=== PATIENT | female | born 1990 | race Caucasian/White ===

== ENCOUNTER 2016-10-05 06:09 | Inpatient (IN) | payer OTHER ==
[2016-10-05] MEDS ORDERED: LACTATED RINGERS 1,000 ML IV ONE (06:16)
[2016-10-05] MEDS ORDERED: CITRIC ACID-SODIUM CITRATE 15 ML CUP PO ONE (06:16)
[2016-10-05] MEDS ORDERED: ceFAZolin 2 GM in SODIUM CHLORIDE 0.9% 100 ML IVPB ONE (06:16)
[2016-10-05 06:22] VITALS: BMI 29.0
[2016-10-05 06:24] LABS: Glucose,Whole Blood 76 mg/dL (75-99)
[2016-10-05] MEDS ORDERED: LACTATED RINGERS 1,000 ML IV SCH (06:30)
[2016-10-05 06:32] LABS: Basophils % (A) 0 %; CH 30.1; CHCM 34.6; Eosinophils # (A) 0.1 k/uL (0-0.7); Eosinophils % (A) 1 %; HCT 37.3 % (34.0-46.0); HDW 3.36; HGB 12.4 gm/dL (11.4-16.0); Luc # (Auto) 0.29; Luc % (Auto) 2; Lymphocytes # (A) 3.7 k/uL (1.0-4.8); Lymphocytes % (A) 27 %; MCH 29.1 pg (25.0-35.0); MCHC 33.3 g/dL (31.0-37.0); MCV 87.5 fL (80.0-100.0); Mean Platelet Volume 7.4; Monocytes # (A) 0.7 k/uL (0-1.0); Monocytes % (A) 5 %; Neutrophils # (A) 9.1 k/uL (1.3-7.7); Neutrophils % (A) 65 %; RBC 4.26 m/uL (3.80-5.40); RDW 12.6 % (11.5-15.5); WBC 13.9 k/uL (3.8-10.6); WBC (Perox) 14.51
[2016-10-05] MEDS ORDERED: NALBUPHINE 10 MG/ML AMPUL ONE (07:51)
[2016-10-05] MEDS ORDERED: KETOROLAC 30 MG/ML 1 ML VIAL ONE (07:51)
[2016-10-05] MEDS ORDERED: OXYTOCIN 10 UNIT/ML 1 ML VIAL IM ONE (07:51)
[2016-10-05] MEDS ORDERED: ONDANSETRON 4 MG/2 ML VIAL ONE (07:51)
[2016-10-05] MEDS ORDERED: MORPHINE SULFATE (PF) 0.3 MG/0.3 ML SYR ONE (07:51)
[2016-10-05] MEDS ORDERED: ACETAMINOPHEN IV (For NPO) 1,000 MG/100 ML VIAL ONE (07:51)
[2016-10-05] MEDS ORDERED: diphenhydrAMINE 25 MG CAP PO PRN (08:29)
[2016-10-05] MEDS ORDERED: METOCLOPRAMIDE 5 MG/ML 2 ML VIAL IVP PRN (08:29)
[2016-10-05] MEDS ORDERED: diphenhydrAMINE 50 MG/ML 1 ML VIAL IVP PRN ×2 (08:29)
[2016-10-05] MEDS ORDERED: diphenhydrAMINE 50 MG CAP PO PRN (08:29)
[2016-10-05] MEDS ORDERED: Acetaminophen-Codeine 300-30mg TAB PO PRN (08:29)
[2016-10-05] MEDS ORDERED: ACETAMINOPHEN TAB 325 MG TAB PO PRN (08:29)
[2016-10-05] MEDS ORDERED: ZOLPIDEM 5 MG TAB PO PRN (08:29)
[2016-10-05] MEDS ORDERED: OXYTOCIN 30 UNITS/500 ML NS 30 UNIT in SALINE 1 500ML.BAG IV SCH (08:30)
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
--- NOTE | 2016-10-05 08:34 | P.OP ---
Date of Procedure: 10/05/16 Preoperative Diagnosis: Intrauterine at term: Prior section Postoperative Diagnosis: Same Procedure(s) Performed: Repeat low transverse section from Pfannenstiel Anesthesia: spinal Surgeon: Melquiades Polanco [employer] Project Manager #1: Raya Conner Estimated Blood Loss (ml): 500 Pathology: other (Placenta) Condition: stable Disposition: floor Operative Findings: Male scores of 8 and 9 at one and 5 minutes respectively and the weight was 7 lbs. 4 oz. Description of Procedure: Patient was taken to the operating suite where a spinal anesthetic was found to be adequate. She was prepped and draped in the normal sterile fashion and placed in dorsal supine position with leftward tilt. Initially a Pfannenstiel skin incision was made. This incision was then carried through to underlying layer of the fascia with a second knife. Fascia was then nicked in the midline and this opening was extended laterally with Fuchs scissors. This both the superior and inferior aspect of this incision were then grasped tented up and bluntly and sharply dissected off the rectus muscles. Rectus muscles were then divided midline elevated with hemostats and entered sharply with Metzenbaum scissors. This opening was then extended superiorly and inferiorly with good visualization of both bowel bladder. Bladder blade was then placed bladder flap was identified and entered with Metzenbaum scissors and this opening was extended across face of the uterus with Metzenbaum scissors. Bladder flap was then digitally created and knife was used to incise the uterus once a small hole was created was extended bluntly and clear fluid was noted. Head was then H medically delivered and the mouth nares were bulb suctioned. Anterior and posterior shoulder was then delivered with gentle downward upper traction followed by the remainder the baby. Umbilical cord was then clamped cut usual fashion an nursery personnel was present to assume care. Placenta was then delivered intact and Pitocin was added to the IV. Uterus was then exteriorized cleared of clots and debris and closed in 1 layer with 0 Vicryl suture. Once excellent hemostasis was obtained 3-0 Vicryl was used to reapproximate the bladder flap. Blood and debris was then suctioned from the posterior cul-de- sac and the uterus was reinserted into the abdomen. Peritoneal layer was then closed [place] suture fascial layer was closed with 0 Vicryl suture one layer of 3 -0 Vicryl was placed in the deep subcuticular tissues and then the skin was closed with 3-0 Vicryl on a Gildardo needle. Sponge, lap, needle counts were all correct 2 and patient was taken to the recovery room in stable and satisfactory condition.
[2016-10-05] MEDS: LACTATED RINGERS 1,000 ML IV SCH ×2 (10:26→21:01)
[2016-10-05] MEDS ORDERED: DIPH,PERTUS(ACELL)TETVAC-LF 0.5 ML VIAL IM ONE (10:28)
[2016-10-05] MEDS: KETOROLAC 30 MG/ML 1 ML VIAL IVP PRN ×2 (14:04→20:12)
[2016-10-05] MEDS: SENNOSIDES-DOCUSATE SODIUM 1 EACH TAB PO SCH (20:13)
[2016-10-06] MEDS: LACTATED RINGERS 1,000 ML IV SCH (02:10)
[2016-10-06] MEDS: KETOROLAC 30 MG/ML 1 ML VIAL IVP PRN (02:56)
--- NOTE | 2016-10-06 07:59 | P.PN ---
Progress Note - Text 0739 Anesthesia POD 1. Patient is status post Jhony section under of anesthesia with intra-thecal preservative free morphine 300 g. Moderate pruritus now resolving, good post-op analgesia, and no headache or other complication.
--- NOTE | 2016-10-06 08:15 | P.PNOBGPC ---
Subjective - Subjective Principal diagnosis: Postop day 1 Interval history: Overall is doing very well postop day 1. She is ambulating, voiding and she is tolerating her diet. She voices no complaints this morning. All questions are answered for her at this time. Her vital signs are stable and afebrile. Objective - Vital Signs Latest vital signs: Vital Signs Temp Pulse Resp BP Pulse Ox 10/06/16 04:00 97.5 F L 74 14 134/80 97 10/06/16 00:00 98 F 76 14 149/84 98 10/05/16 20:00 98.8 F 88 16 132/76 10/05/16 17:33 98.1 F 84 18 116/69 96 10/05/16 12:00 97.9 F 68 16 112/70 98 10/05/16 10:34 97.4 F L 62 16 114/72 98 10/05/16 10:04 63 16 117/71 97 10/05/16 09:34 62 16 114/64 99 10/05/16 09:19 75 16 134/64 97 10/05/16 09:04 80 16 131/63 98 10/05/16 08:49 83 16 134/84 97 10/05/16 08:34 96.9 F L 81 16 111/70 99 Intake and Output 10/05/16 10/06/16 10/06/16 22:59 06:59 14:59 Intake Total 997 100 Output Total 600 1500 Balance 397 -1400 Intake: Oral 997 100 Output: Urine 600 1500 3-way Urethral 300 Straight 500 Other: # Voids 1 - Exam Lungs: bilateral: normal Chest: Normal S1, Normal S2 Extremities: Present: normal Abdomen: Present: normal appearance, soft. Absent: distention, tenderness Incision: Present: normal, dry, intact Uterus: Present: normal, firm
[2016-10-06] MEDS: SENNOSIDES-DOCUSATE SODIUM 1 EACH TAB PO SCH ×2 (08:32→20:03)
[2016-10-06] MEDS: Acetaminophen-Codeine 300-30mg TAB PO PRN ×3 (08:32→21:19)
[2016-10-06 09:29] LABS: Basophils # (A) 0.1 k/uL (0-0.2); Basophils % (A) 0 %; CH 29.9; CHCM 34.5; Eosinophils # (A) 0.1 k/uL (0-0.7); Eosinophils % (A) 1 %; HCT 29.3 % (34.0-46.0); HDW 3.35; Luc # (Auto) 0.16; Luc % (Auto) 2; Lymphocytes # (A) 2.8 k/uL (1.0-4.8); Lymphocytes % (A) 25 %; MCH 29.5 pg (25.0-35.0); MCHC 33.7 g/dL (31.0-37.0); MCV 87.3 fL (80.0-100.0); Mean Platelet Volume 8.1; Monocytes # (A) 0.7 k/uL (0-1.0); Monocytes % (A) 7 %; Neutrophils # (A) 7.1 k/uL (1.3-7.7); Neutrophils % (A) 65 %; RBC 3.35 m/uL (3.80-5.40); RDW 12.7 % (11.5-15.5); WBC 10.9 k/uL (3.8-10.6); WBC (Perox) 11.15
[2016-10-06 09:31] LABS: HGB 9.9 gm/dL (11.4-16.0)
[2016-10-06] MEDS: IBUPROFEN 600 MG TAB PO PRN ×2 (11:49→17:58)
[2016-10-07] MEDS: IBUPROFEN 600 MG TAB PO PRN ×2 (00:11→06:50)
[2016-10-07 00:43] VITALS: RESP 16
--- NOTE | 2016-10-07 06:45 | P.PNOBGPC ---
Subjective - Subjective Patient reports: Reports appetite normal, Reports voiding normally, Reports pain well controlled, Reports ambulating normally : doing well Objective - Vital Signs Latest vital signs: Vital Signs Temp Pulse Pulse Resp BP BP Pulse Ox 10/07/16 00:00 98.0 F 60 16 116/71 99 10/06/16 16:25 98.1 F 64 12 127/76 10/06/16 08:00 98.2 F 72 20 115/72 95 - Exam Lungs: bilateral: normal Chest: Normal S1, Normal S2 Extremities: Present: normal Abdomen: Present: normal appearance, soft. Absent: distention, tenderness Incision: Present: normal, dry, intact Uterus: Present: normal, firm - Labs Labs: Abnormal Lab Results - Last 24 Hours (Table) 10/06/16 Range/Units 08:58 WBC 10.9 H (3.8-10.6) k/uL RBC 3.35 L (3.80-5.40) m/uL Hgb 9.9 L D (11.4-16.0) gm/dL Hct 29.3 L (34.0-46.0) % Assessment and Plan (1) Previous delivery, delivered Narrative/Plan: This is postoperative day #2. Patient is resting without complaints. Vital signs are stable she is afebrile. Uterus is firm nontender she's having normal lochia. She is intact and dry. Patient is ambulating, urinating, tolerating regular diet without difficulty. Patient wishes to go home today. My impression is a normal postoperative course. Plan is to continue routine postoperative care, discharge home later today follow-up with Dr. Polanco in 1 week. Current Visit: Yes Status: Acute Code(s): O34.219 - MATERNAL CARE FOR UNSP TYPE SCAR FROM PREVIOUS DEL SNOMED Code(s): 033414287
--- NOTE | 2016-10-07 06:47 | P.DS ---
Providers Date of admission: 10/05/16 06:09 Expected date of discharge: 10/07/16 Attending physician: Melquiades Polanco Primary care physician: Stated None - Discharge Diagnosis(es) (1) Previous delivery, delivered Current Visit: Yes Status: Acute Hospital Course: Please see dictated H&P per Dr. Polanco on this patient's admission. Brief summary this is a pleasant 26-year-old 2 para 1 female 39 weeks gestation who is admitted for elective repeat section. Patient is admitted undergoes above-named surgery. Again see dictated operative note per Dr. Polanco. Postoperative patient does well and on postoperative 2 is felt be stable for discharge home follow up with Dr. Polanco in 1 week. Procedures: Repeat low transverse section. Patient Condition at Discharge: Good Plan - Discharge Summary New Discharge Prescriptions: Acetaminophen-Codeine 300-30mg [Tylenol #3] 1 tab PO Q4H PRN #30 tablet PRN Reason: Pain Ibuprofen [Motrin] 600 mg PO Q6HR PRN #30 tab PRN Reason: Pain Discharge Medication List Pnv with Ca,No.72/Iron/FA [ Plus Tablet] 1 each PO DAILY 09/29/16 [ History] Acetaminophen-Codeine 300-30mg [Tylenol #3] 1 tab PO Q4H PRN #30 tablet [Rx] Ibuprofen [Motrin] 600 mg PO Q6HR PRN #30 tab 10/06/16 [Rx] Follow up Appointment(s)/Referral(s): Melquiades oPlanco DO [Doctor of Osteopathic Medicine] - 1 Week Activity/Diet/Wound Care/Special Instructions: No heavy lifting, limit stairs and driving and pelvic rest. If any high temperatures, heavy bleeding, or severe pain call my office. Discharge Disposition: HOME SELF-CARE
[2016-10-07 08:51] VITALS: BP 123/92; PULSE 80; TEMP 98.4
[2016-10-07] MEDS: SENNOSIDES-DOCUSATE SODIUM 1 EACH TAB PO SCH (09:22)
== END 2016-10-07 11:45 | disposition home or self-care (01) | DRG 766 ==
LOC: 4FBP 06:09
PROVIDERS: ADMIT Obstetrics & Gynecology; ATTEND Obstetrics & Gynecology
PROC: 10D00Z1 Extraction of Products of Conception, Low, Open Approach (ICD-10-PCS; principal; 2016-10-05 08:03)
DX: O34.211 Maternal care for low transverse scar from previous cesarean delivery (principal); O24.420 Gestational diabetes mellitus in childbirth, diet controlled; F17.200 Nicotine dependence, unspecified, uncomplicated; Z37.0 Single live birth; O99.334 Smoking (tobacco) complicating childbirth; Z3A.39 39 weeks gestation of pregnancy; O99.824 Streptococcus B carrier state complicating childbirth
CPT/HCPCS: 85025; 86850; 86900; 86901; 88307; 90471; 90715